=== PATIENT | male | born 1965 | race Caucasian/White ===

== ENCOUNTER 2022-01-08 15:08 | Observation (INO) ==
[2022-01-08 15:51] LABS: Basophils # 0.1 K/mcL (0.0-0.2); Basophils % 0.9 %; Eosinophils # 0.2 K/mcL (0.0-0.6); Eosinophils % 2.1 %; Hematocrit 41.2 % (37.5-50.1); Hemoglobin 14.2 g/dL (12.9-16.9); Immature Granulocytes % 0.4 % (0-4); Lymphocytes # 2.4 K/mcL (0.6-4.6); Lymphocytes % 24.1 %; Mean Corpuscular HGB Conc 34.5 g/dL (31.6-35.5); Mean Corpuscular Hemoglobin 31.2 pg (28.0-33.3); Mean Corpuscular Volume 90.5 fL (83.0-100.0); Mean Platelet Volume 10.7 fL (9.4-12.4); Monocytes # 0.9 K/mcL (0.0-1.3); Monocytes % 9.5 %; Neutrophils # 6.2 K/mcL (1.6-8.9); Platelet Count 236 K/mcL (140-400); Red Blood Count 4.55 M/mcL (4.19-5.50); Red Cell Distribution Width 13.1 % (11.5-14.5); White Blood Count 9.9 K/mcL (4.3-11.1)
[2022-01-08 15:56] LABS: INR 1.1; Prothrombin Time 12.4 Seconds (9.4-12.1)
[2022-01-08 15:59] LABS: Activated Partial Thrombo Time 32.8 Seconds (26.0-36.0)
[2022-01-08 16:14] LABS: BUN/Creatinine Ratio 17 (6-26); Blood Urea Nitrogen 24 mg/dL (6-20); Calcium 9.6 mg/dL (8.6-10.3); Carbon Dioxide 25 mEq/L (23-29); Chloride 97 mEq/L (98-107); Glucose 94 mg/dL (70-105); Osmolality,Calculated 276 (280-300); Potassium 3.4 mEq/L (3.5-5.1); Sodium 131 mEq/L (136-145)
[2022-01-08 16:15] LABS: Troponin I < 0.03 ng/mL (< 0.04)
[2022-01-08] MEDS ORDERED: Aspirin 325 MG TABLET PO ONE (20:25)
[2022-01-08] MEDS ORDERED: Naloxone 0.4 MG/ML INJ IVP PRN (21:13)
[2022-01-08] MEDS ORDERED: Melatonin 3 MG TABLET PO PRN (21:13)
[2022-01-08] MEDS ORDERED: Acetaminophen 325 MG TABLET PO PRN (21:13)
[2022-01-08] MEDS ORDERED: Ondansetron 4 MG/2 ML VIAL IVP PRN (21:13)
[2022-01-08] MEDS ORDERED: Nitroglycerin 0.4 MG TAB.SUBL SL PRN (21:24)
[2022-01-08] MEDS ORDERED: Potassium Chloride Elixir 20 MEQ/15 ML UDC PO ONE (23:27)
[2022-01-08] MEDS: 0.9 % Sodium Chloride 1,000 ML IVC SCH (23:37)
[2022-01-09 00:46] LABS: Bilirubin,Urine Negative (Negative); Blood,Urine Trace (Negative); Clarity,Urine Clear (Clear); Color,Urine Light-Yellow (Yellow); Glucose,Urine (UA) Normal (Normal); Hyaline Casts,Urine Few per lpf (None Seen); Ketones,Urine Negative (Negative); Leukocyte Esterase,Urine Negative (Negative); Mucus,Urine Few per lpf (None-Few); Nitrite,Urine Negative (Negative); PH,Urine 5.5 pH Units (5.0-8.0); Protein,Urine Negative (Neg-Trace); RBC,Urine 0-3 per hpf (0-3); Specific Gravity,Urine 1.013 (1.010-1.025); Urobilinogen,Urine Normal (Normal); WBC,Urine 0-3 per hpf (0-3)
[2022-01-09 06:04] LABS: Hematocrit 39.6 % (37.5-50.1); Hemoglobin 13.5 g/dL (12.9-16.9); Mean Corpuscular HGB Conc 34.1 g/dL (31.6-35.5); Mean Corpuscular Hemoglobin 31.4 pg (28.0-33.3); Mean Corpuscular Volume 92.1 fL (83.0-100.0); Mean Platelet Volume 10.6 fL (9.4-12.4); Platelet Count 227 K/mcL (140-400); Red Cell Distribution Width 13.1 % (11.5-14.5); White Blood Count 7.6 K/mcL (4.3-11.1)
[2022-01-09 06:27] LABS: Calcium 9.1 mg/dL (8.6-10.3); Chol/HDL Ratio 6.3 (0-4.9); Potassium 3.8 mEq/L (3.5-5.1)
[2022-01-09] MEDS ORDERED: Regadenoson 0.4 MG/5 ML SYRINGE IVP ONE (08:10)
[2022-01-09] MEDS: 0.9 % Sodium Chloride 1,000 ML IVC SCH (13:23)
[2022-01-09] MEDS ORDERED: *HR* Midazolam HCl 5 MG/5 ML VIAL IVP ONE (15:19)
[2022-01-09] MEDS ORDERED: Heparin 1,000 UNITS/500 mL 500 ML ONE (15:19)
[2022-01-09] MEDS ORDERED: 0.9 % Sodium Chloride 1,000 ML ONE (15:19)
[2022-01-09] MEDS ORDERED: *HR* Heparin 10,000 UNIT/10 ML VIAL ONE (15:19)
[2022-01-09] MEDS ORDERED: Iopamidol - 370 200 ML INFUS..BTL ONE (15:19)
[2022-01-09] MEDS ORDERED: Nitroglycerin 1,000 MCG/5 ML VIAL IV ONE (15:19)
[2022-01-09] MEDS ORDERED: *HR* FentaNYL (PF) 100 MCG/2 ML VIAL ONE (15:19)
[2022-01-10 03:59] LABS: Calcium 9.1 mg/dL (8.6-10.3); Potassium 4.2 mEq/L (3.5-5.1)
[2022-01-10 07:32] VITALS: BP 117/67; PULSE 76; TEMP 97.9; O2SAT 99
== END 2022-01-10 10:42 | disposition home or self-care (01) ==
LOC: EMEROOARM 15:08 → 3BNU 15:08 → SUATTDRO 21:34 → 3BNU 22:03
PROVIDERS: ADMIT Internal Medicine; ATTEND Nurse Practitioner